=== PATIENT | female | born 1965 | race Two or more races ===

== ENCOUNTER 2020-05-08 00:35 | Emergency (ER) | payer OTHER ==
[~2020-05-08] VITALS: Ht 154.9 cm; Wt 74.8 kg
--- NOTE | 2020-05-08 00:47 | NUR ---
AKUA ELIZONDO DO AT BED SIDE
--- NOTE | 2020-05-08 00:48 | NUR ---
BIBS FOR C/O L SIDED BODY PAIN INCLUDING L BACK, L SIDE OF THE ABDOMEN, L HIP DOWN TO THE LEG S/P FALLING BACKWARD A FEW HOURS [employer]. PT DENIED KO; HOWEVER, WITH C/O URINARY INCONTINENCE S/P FALL. PT WAS ASSISTED TO BED 4, WS PLACED ON A MONITOR. VSS. WILL CONT TO MONITOR
[2020-05-08] MEDS ORDERED: KETOROLAC TROMETHAMINE INJ 30 MG/ML VIAL IV ONE (01:00)
[2020-05-08] MEDS ORDERED: KETOROLAC TROMETHAMINE 15 MG/ML VIAL ONE (01:01)
[2020-05-08 01:14] LABS: BASOPHILS % (AUTO) 0.1 % (0.0-2.0); EOSINOPHILS % (AUTO) 5.7 % (0.0-6.0); HEMATOCRIT 39 % (33-45); HEMOGLOBIN 13.1 g/dL (11.5-14.8); LYMPHOCYTES # (AUTO) 1.4 /CMM (0.8-4.8); LYMPHOCYTES % (AUTO) 13.2 % (20.0-44.0); MEAN CORPUSCULAR HGB CONC 34 g/dl (31.0-36.0); MEAN CORPUSCULAR VOLUME 91 fL (82-100); MONOCYTES # (AUTO) 0.9 /CMM (0.1-1.30); MONOCYTES % (AUTO) 8.8 % (2.0-12.0); NEUTROPHILS # (AUTO) 7.7 /CMM (1.8-8.9); NEUTROPHILS % (AUTO) 72.2 % (43.0-81.0); PLATELET COUNT (AUTO) 214 /CMM (150-450); RED BLOOD CELL COUNT(AUTO) 4.29 MIL/uL (4.0-5.2); WHITE BLOOD COUNT (AUTO) 10.7 K/uL (4.3-11.0)
[2020-05-08 01:26] LABS: BILIRUBIN,DIRECT 0.1 mg/dL (0.0-0.2); BILIRUBIN,TOTAL 0.3 mg/dL (0.2-1.0); CALCIUM, SERUM 9.2 mg/dL (8.5-10.1); POTASSIUM 3.9 mmol/L (3.5-5.1); TOTAL PROTEIN, SERUM 7.8 g/dL (6.4-8.2)
[2020-05-08] MEDS ORDERED: IOHEXOL-300 100 ML VIAL IV ONE (01:36)
[2020-05-08] MEDS ORDERED: IV NS 0.9% 250 ML IV ONE (01:36)
[2020-05-08] MEDS ORDERED: CT SWABBABLE VALVE TRANS SET 1 EA INFUS.SET MC ONE (01:36)
--- NOTE | 2020-05-08 02:00 | NUR ---
BACK FROM CT
--- NOTE | 2020-05-08 02:28 | NUR ---
URINE SAMPLE COLLECTED AND SENT TO LAB
[2020-05-08 02:34] LABS: BILIRUBIN,URINE NEGATIVE (NEGATIVE); COLOR,URINE YELLOW (YELLOW); LEUKOCYTE ESTERASE ,URINE NEGATIVE (NEGATIVE); NITRITE, URINE NEGATIVE (NEGATIVE); PROTEIN,URINE NEGATIVE (NEGATIVE); UGLUCOSE NEGATIVE (NEGATIVE); UROBILINOGEN,URINE 0.2 EU/dL (0.2)
[2020-05-08] MEDS ORDERED: NAPR-1009 PO (02:45)
--- NOTE | 2020-05-08 02:52 | NUR ---
PT IS MEDICALLY STBALE FOR D/C . IV removed. Catheter intact and site benign. Pressure and 4x4 applied to site. No bleeding noted.Patient discharged to home in stable condition. Rx and Written and verbal after care instructions given. Patient verbalizes understanding of instruction.
[2020-05-08 02:53] VITALS: BP 139/77
== END 2020-05-08 02:53 | disposition home or self-care (01) ==
LOC: ER 00:35
DX: R10.32 Left lower quadrant pain (principal); R10.12 Left upper quadrant pain; M54.5 Low back pain; E03.9 Hypothyroidism, unspecified; M19.90 Unspecified osteoarthritis, unspecified site; W19.XXXA Unspecified fall, initial encounter; Y93.89 Activity, other specified; Y92.89 Other specified places as the place of occurrence of the external cause; Y99.8 Other external cause status
CPT/HCPCS: 36415; 72131; 74177; 80048; 80076; 81003; 83690; 84703; 85025; 96374; 99285; J1885; J7050; Q9967